=== PATIENT | female | born 1985 | race Caucasian/White ===

== ENCOUNTER → 2016-07-29 | Outpatient (CLI) | payer OTHER ==
[~2016-07-29] MED LIST: ATV2 PO; BIOT1CAP3 PO; CLON2TAB3 PO; GABA1CAP4 PO; MCRB100HP PO; MTR800 PO; MULT-240 PO; PROM25TA16 PO; PROP60CA PO; PRX/40 PO; SINCALIDE INJ 1.7 MCG in SODIUM CHLORIDE 0.9% 100ML 100 ML IV ONE; TPM/50 PO
--- NOTE | 2016-07-29 15:30 | DIAGNOSTIC IMAGING REPORT ---
NUCLEAR MEDICINE HEPATOBILIARY SCAN WITH EJECTION FRACTION ANALYSIS CLINICAL HISTORY: Abdominal pain and vomiting COMPARISON STUDY: Biliary ultrasound dated 06/05/2015 FINDINGS: Patient was injected with 5.2 mCi of technetium 99m Choletec. Sequential anterior imaging was performed. The gallbladder was first visualized on the 15 minute image. There was normal passage of activity into small bowel. At 1 hour, the patient was administered 1.7 mcg of sincalide utilizing a 30 minute intravenous infusion. The gallbladder ejection fraction was normal measuring 54%. IMPRESSION: 1. No evidence of cystic duct obstruction. Normal gallbladder ejection fraction of 54% Electronically signed by: Blake Lake M.D. 07/29/2016 3:28 PM Dictated Date/Time: 07/29/2016 3:26 PM
== END | disposition home or self-care (01) ==
LOC: C.NUCL 12:11
PROVIDERS: ATTEND Internal Medicine Gastroenterology
DX: R10.9 Unspecified abdominal pain (principal); R11.10 Vomiting, unspecified

== ENCOUNTER 2016-12-01 15:44 | Emergency (ER) | payer OTHER ==
[~2016-12-01] VITALS: Ht 175.3 cm; Wt 84.0 kg
[~2016-12-01 15:44] MED LIST changes: -SINCALIDE INJ 1.7 MCG in SODIUM CHLORIDE 0.9% 100ML 100 ML IV ONE; -TPM/50 PO
[2016-12-01 15:50] VITALS: TEMP 36.5; Ht 175.3 cm; Wt 84.0 kg
[2016-12-01] MEDS ORDERED: SODIUM CHLORIDE 0.9% 1000ML 1,000 ML IV STA (16:13)
[2016-12-01] MEDS ORDERED: TPM/50 PO (16:41)
[2016-12-01] MEDS ORDERED: CLON2TAB3 PO (16:43)
[2016-12-01 17:00] LABS: BASO % 0.7 %; BASO ABS # 0.05 K/uL (0-0.2); COMPLETE YES; EOS % 1.7 %; HEMATOCRIT 35.8 % (37-47); LYMPH % 43.3 %; LYMPH ABS # 3.25 K/uL (1.2-3.4); MEAN CELL VOLUME 89.5 fL (80-100); MEAN CORPUSCULAR HEMOGLOBIN 29.3 pg (25-34); MEAN CORPUSCULAR HGB CONC 32.7 g/dl (32-36); MEAN PLATELET VOLUME 10.3 fL (7.4-10.4); MONO % 8.9 %; NEUT % 45.4 %; PLATELET COUNT 175 K/uL (130-400); WHITE BLOOD COUNT 7.51 K/uL (4.8-10.8)
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
[2016-12-01 17:18] LABS: ALT/SGPT 15 U/L (12-78); AST/SGOT 27 U/L (15-37); BLOOD UREA NITROGEN 11 mg/dl (7-18); BUN/CREATININE RATIO 8.6 (10-20); CALCIUM 7.8 mg/dl (8.5-10.1); CARBON DIOXIDE 30 mmol/L (21-32); CHLORIDE 110 mmol/L (98-107); GLUCOSE 75 mg/dl (70-99); MAGNESIUM 2.1 mg/dl (1.8-2.4); POTASSIUM 3.5 mmol/L (3.5-5.1); SODIUM 145 mmol/L (136-145)
[2016-12-01 17:25] VITALS: O2SAT 96
[2016-12-01 17:29] LABS: ALB/GLOB RATIO 1.2 (0.9-2); ALKALINE PHOSPHATASE 88 U/L (45-117)
[2016-12-01 17:45] LABS: URINE APPEARANCE CLEAR (CLEAR); URINE BILIRUBIN NEG (NEG); URINE COLOR YELLOW; URINE NITRITE NEG (NEG); URINE SPECIFIC GRAVITY 1.009 (1.000-1.030); UROBILINOGEN NEG (NEG); ZZUR CULT IF INDIC CLEAN CATCH NO
[2016-12-01 17:54] LABS: MANUAL MICROSCOPIC REQUIRED? NO; REVIEW REQ? NO
[2016-12-01 18:12] LABS: LYME DISEASE AB IGG NEG (NEG); LYME DISEASE AB IGM NEG (NEG)
[2016-12-01 18:26] LABS: BENZODIAZEPINE, URINE POS (NEG); COCAINE,URINE NEG (NEG); PHENCYCLIDINE, URINE NEG (NEG)
[2016-12-01 19:04] VITALS: BP 95/62; PULSE 72; O2SAT 96
[2016-12-04 10:16] LABS: HYDROXYETHYLFLURAZEPAM CONF NEGATIVE NG/ML (CUTOFF=50); HYDROXYMIDAZOLAM NEGATIVE NG/ML (CUTOFF=50); HYDROXYTRIAZOLAM CONF NEGATIVE NG/ML (CUTOFF=50); TEMAZEPAM CONF NEGATIVE NG/ML (CUTOFF=50)
[2017-05-09] MEDS ORDERED: ATV2 PO (20:10)
== END 2016-12-01 19:05 | disposition home or self-care (01) ==
LOC: C.EDB 15:45 → C.EDC 19:05
DX: R55 Syncope and collapse (principal); I44.0 Atrioventricular block, first degree; F15.21 Other stimulant dependence, in remission; G40.909 Epilepsy, unspecified, not intractable, without status epilepticus; Z91.81 History of falling; Z98.890 Other specified postprocedural states; Z79.899 Other long term (current) drug therapy; Z88.8 Allergy status to other drugs, medicaments and biological substances; Z91.09 Other allergy status, other than to drugs and biological substances; Z80.9 Family history of malignant neoplasm, unspecified; Z82.49 Family history of ischemic heart disease and other diseases of the circulatory system

== ENCOUNTER → 2016-12-12 | Outpatient (CLI) | payer OTHER ==
[~2016-12-12] MED LIST changes: -BIOT1CAP3 PO; -MCRB100HP PO; -MTR800 PO; -MULT-240 PO; -PROM25TA16 PO; +TPM/50 PO
[2016-12-12 17:49] LABS: BASO % 0.5 %; BASO ABS # 0.03 K/uL (0-0.2); COMPLETE YES; EOS % 1.6 %; HEMATOCRIT 39.8 % (37-47); IG% 0.2 %; LYMPH % 34.4 %; LYMPH ABS # 1.91 K/uL (1.2-3.4); MEAN CELL VOLUME 89.8 fL (80-100); MEAN CORPUSCULAR HEMOGLOBIN 28.9 pg (25-34); MEAN CORPUSCULAR HGB CONC 32.2 g/dl (32-36); MEAN PLATELET VOLUME 10.5 fL (7.4-10.4); MONO % 7.4 %; NEUT % 55.9 %; PLATELET COUNT 204 K/uL (130-400); RED BLOOD COUNT 4.43 M/uL (4.2-5.4); WHITE BLOOD COUNT 5.55 K/uL (4.8-10.8)
[2016-12-12 18:18] LABS: BLOOD UREA NITROGEN 9 mg/dl (7-18); BUN/CREATININE RATIO 8.4 (10-20); GLUCOSE 80 mg/dl (70-99); SODIUM 144 mmol/L (136-145)
[2016-12-12 18:19] LABS: ALB/GLOB RATIO 1.1 (0.9-2); ALKALINE PHOSPHATASE 92 U/L (45-117); ALT/SGPT 13 U/L (12-78); AST/SGOT 15 U/L (15-37); CALCIUM 8.8 mg/dl (8.5-10.1); CARBON DIOXIDE 27 mmol/L (21-32); CHLORIDE 109 mmol/L (98-107); POTASSIUM 4.1 mmol/L (3.5-5.1)
--- NOTE | 2016-12-18 10:11 | CODING QUERY MEDICAL NECESSITY ---
SUPPORTING DIAGNOSIS NEEDED Dr. Marion, A supporting diagnosis is required for the test/procedure performed on this patient in order for us to be reimbursed by the patient's insurance. Please provide a supporting diagnosis for the following test/procedure listed below next to the test name along with your signature. *If there is no additional diagnosis for this patient that would support the following test/procedure please document that below next to the test/procedure. Test(s)/Procedure(s) that require a supporting diagnosis: * VITAMIN D ASSAY DIAGNOSIS: DATE OF SERVICE: 12/12/16 Provider Signature: Date: Thank you Henry Gaytan [facility] Information Management Once completed, please kindly fax back to [phone] For questions please call [phone]
== END | disposition home or self-care (01) ==
LOC: C.LAB 16:22
PROVIDERS: ATTEND Family Medicine
DX: H57.10 Ocular pain, unspecified eye (principal); W19.XXXA Unspecified fall, initial encounter; R42 Dizziness and giddiness; M62.838 Other muscle spasm; M54.5 Low back pain; E55.9 Vitamin D deficiency, unspecified

== ENCOUNTER → 2017-02-25 | Outpatient (CLI) | payer OTHER ==
[~2017-02-25] MED LIST changes: -ATV2 PO
--- NOTE | 2017-02-25 17:03 | EEG Procedure Note ---
EEG Procedure Note Date of Service Feb 25, 2017. Start / End Times Start Time: 9:24 AM End Time: 10:24 AM Referring Physician Aida Camargo History This is a 31-year-old female with seizure-like activity. Extended EEG for further evaluation. Pertinent home medications include Topamax and Ativan Home Medication List Scheduled Clonazepam (Klonopin), 2 MG PO BID Paroxetine (Paroxetine HCl), 40 MG PO DAILY Propranolol HCl (Propranolol HCl ER), 60 MG PO DAILY Topiramate (Topamax), 50 MG PO BID Scheduled PRN Gabapentin (Gabapentin), 600 MG PO QID PRN for Sciatica Pain Description This is a 21 electrode EEG with a single channel dedicated to limited EKG. The electrodes were placed in accordance with the International 10-20 system. Photic stimulation and hyperventilation was not done because the patient became very anxious. At the start of the recording the patient was in an awake state. Background was well organized and composed of symmetric mixed alpha and beta frequencies. There was a symmetric well-formed moderate amplitude 10-11 Hz posterior dominant rhythm that was reactive to eye opening and closure. Drowsiness was indicated by vertex waves, loss of muscle artifact and slowing of the background rhythm. There was no stage II sleep transients. Interpretation This is a normal one hour extended EEG. There was no electrographic seizures or epileptiform discharges. Clinical Correlation A normal EEG does not rule out epilepsy if there is a strong clinical suspicion.
== END | disposition home or self-care (01) ==
LOC: C.NEUR 09:09
PROVIDERS: ATTEND Psychiatry & Neurology Neurology
DX: R56.9 Unspecified convulsions (principal)

== ENCOUNTER → 2017-02-25 | Outpatient (CLI) | payer OTHER ==
--- NOTE | 2017-02-25 09:11 | DIAGNOSTIC IMAGING REPORT ---
MRI OF THE BRAIN WITHOUT IV CONTRAST CLINICAL HISTORY: Migraine headache. Question of seizure-like activity. Loss of balance. COMPARISON STUDY: CT of the brain dated 06/27/2016. TECHNIQUE: MRI of the brain was performed utilizing various T1 and T2-weighted sequences in the axial, sagittal, and coronal planes. IV contrast was not administered for this examination. Examination is performed using the seizure protocol. FINDINGS: Brain parenchyma: The brain parenchyma is normal in appearance. There is no hemorrhage or mass effect. There is no restricted diffusion to suggest acute ischemia. Lance-white matter differentiation is preserved. No extra-axial fluid collection is seen. The cerebellar tonsils are normal in configuration. The hippocampi are normal and symmetric. Ventricles, sulci, and cisterns: Normal in configuration. Pituitary and sella: Unremarkable. Intracranial vasculature: Normal flow voids are maintained at the skull base. Orbits: The bony orbits are grossly intact. Orbital contents are normal in appearance. Sinuses and mastoids: Mild mucosal thickening is seen within the maxillary antra and ethmoid sinuses. The remaining paranasal sinuses are clear. The mastoid air cells are well pneumatized. Calvarium: Unremarkable. Cervical cord: Partially visualized cervical spinal cord is normal in morphology and signal intensity. IMPRESSION: No acute intracranial abnormality. Electronically signed by: Lucien Corcoran M.D. 02/25/2017 9:10 AM Dictated Date/Time: 02/25/2017 9:06 AM
== END | disposition home or self-care (01) ==
LOC: C.MRIBC 08:16
PROVIDERS: ATTEND Psychiatry & Neurology Neurology
DX: R56.9 Unspecified convulsions (principal); R26.89 Other abnormalities of gait and mobility; G43.109 Migraine with aura, not intractable, without status migrainosus

== ENCOUNTER → 2017-09-08 | Outpatient (CLI) | payer OTHER ==
[~2017-09-08] MED LIST changes: +ATV2 PO; -CLON2TAB3 PO; +GABA-1219 PO; -GABA1CAP4 PO
--- NOTE | 2017-09-08 10:03 | DIAGNOSTIC IMAGING REPORT ---
ABDOMEN LIMITED (US) HISTORY: 32 years-old Female RUQ PAIN acute right upper quadrant abdominal pain COMPARISON: CT abdomen and pelvis 06/20/2016, hepatobiliary scan 07/29/2016 TECHNIQUE: Multiple real-time sonographic images of the abdominal right upper quadrant were obtained assessing grayscale appearance and color flow. FINDINGS: The pancreas is obscured by bowel gas. The liver is within normal limits measuring 15.0 cm in length. No focal hepatic mass lesions or intrahepatic biliary ductal dilation identified. The gallbladder appears normal without cholelithiasis, wall thickening or pericholecystic fluid. Common bile duct is normal, 4 mm. The imaged right kidney is unremarkable without hydronephrosis, however partially obscured by bowel gas. IMPRESSION: 1. Unremarkable exam of the abdominal right upper quadrant. No cholelithiasis or sonographic evidence of acute cholecystitis. 2. No biliary ductal dilation. The above report was generated using voice recognition software. It may contain grammatical, syntax or spelling errors. Electronically signed by: Howie Zhou M.D. 09/08/2017 10:01 AM Dictated Date/Time: 09/08/2017 9:59 AM
== END | disposition home or self-care (01) ==
LOC: C.ULTR 09:25
PROVIDERS: ATTEND Nurse Practitioner Family
DX: R10.11 Right upper quadrant pain (principal)

== ENCOUNTER 2017-12-01 18:19 | Emergency (ER) | payer OTHER ==
[~2017-12-01] VITALS: Ht 170.2 cm; Wt 88.0 kg
[~2017-12-01 18:19] MED LIST changes: -ATV2 PO; -PROP60CA PO
[2017-12-01 18:26] VITALS: TEMP 36.7; Ht 170.2 cm; Wt 88.0 kg
[2017-12-01] MEDS ORDERED: CARISOPRODOL 350 MG TAB PO STA (19:01)
[2017-12-01] MEDS ORDERED: SODIUM CHLORIDE 0.9% 1000ML 1,000 ML IV STA (19:01)
[2017-12-01] MEDS ORDERED: PROM25TA16 PO (19:28)
[2017-12-01] MEDS ORDERED: TPM100 PO (19:28)
[2017-12-01] MEDS ORDERED: RBX500 PO (19:28)
[2017-12-01 19:32] LABS: BASO % 0.5 %; BASO ABS # 0.03 K/uL (0-0.2); EOS % 1.9 %; EOS ABS # 0.12 K/uL (0-0.5); HEMATOCRIT 34.9 % (37-47); HEMOGLOBIN 11.6 g/dL (12.0-16.0); LYMPH % 37.8 %; LYMPH ABS # 2.35 K/uL (1.2-3.4); MEAN CELL VOLUME 90.6 fL (80-100); MEAN CORPUSCULAR HEMOGLOBIN 30.1 pg (25-34); MEAN CORPUSCULAR HGB CONC 33.2 g/dl (32-36); MEAN PLATELET VOLUME 10.4 fL (7.4-10.4); MONO % 4.7 %; MONO ABS # 0.29 K/uL (0.11-0.59); NEUT % 55.1 %; NEUT ABS # 3.42 K/uL (1.4-6.5); PLATELET COUNT 173 K/uL (130-400); RED CELL DISTRIBUTION WIDTH CV 13.3 % (11.5-14.5); RED CELL DISTRIBUTION WIDTH SD 44.1 fL (36.4-46.3); WHITE BLOOD COUNT 6.21 K/uL (4.8-10.8)
[2017-12-01 20:00] LABS: ALBUMIN 3.5 gm/dl (3.4-5.0); CALCIUM 8.6 mg/dl (8.5-10.1); CREATININE 1.02 mg/dl (0.60-1.20); POTASSIUM 3.6 mmol/L (3.5-5.1); TOTAL PROTEIN 6.4 gm/dl (6.4-8.2)
[2017-12-01] MEDS ORDERED: ATV2 PO (20:10)
[2017-12-01] MEDS ORDERED: PROP60CA PO (20:38)
[2017-12-01] MEDS ORDERED: KETOROLAC TROMETHAMINE 30 MG/ML VIAL IV STA (21:55)
[2017-12-01] MEDS ORDERED: CARI350T28 PO (22:04)
--- NOTE | 2017-12-01 22:06 | EMERGENCY ROOM VISIT NOTE ---
History First contact with patient: 18:38 Chief Complaint: NECK PAIN Stated Complaint: NECK SHOULDER PAIN 2 WK VIRUS, REF BY NATHALIE KENNEDY History of Present Illness The patient is a 32 year old female who presents to the Emergency Room via private vehicle with complaints of "neck/shoulder pain, two-week virus, referred by chiropractor". She states that she has been experiencing right sided neck pain extending into her right shoulder region for many weeks. She states then she developed what she believed was a stomach virus 2 weeks ago. She notes that she has profuse diarrhea and at times notes that she becomes nearly incontinent because of the amount of diarrhea. She states that she went to see her chiropractor a few days ago who did a massage and manipulation she felt excellent for 2 days. Then the pain returned and is now severe. She rates the pain as a 4-6/10. She denies any current fever, chest pain, shortness of breath. No abdominal pain other than minimal discomfort in the upper quadrant regions. Review of Systems A complete 10-point Review of Systems was discussed with the patient, with pertinent positives and negatives listed in the History of Present Illness. All remaining Review of Systems questions can be considered negative unless otherwise specified. Past Medical/Surgical History Medical Problems: (1) Back pain (2) Bronchitis (3) Migraine (4) opiate dependence (5) Seizures Surgical Problems: (1) Hx of tonsillectomy (2) [place] teeth removed Family History Cancer Hypertension Lung disease Social History Smoking Status: Never Smoker Alcohol Use: none Drug Use: none Marital Status: in relationship Housing Status: lives with family Occupation Status: employed Current/Historical Medications Scheduled Paroxetine (Paroxetine HCl), 40 MG PO DAILY Promethazine HCl (Promethazine HCl), 25 MG PO QID Propranolol HCl (Propranolol HCl ER), 60 MG PO DAILY Topiramate (Topiramate), 100 MG PO BID Scheduled PRN Carisoprodol (Soma), 350 MG PO TID PRN for Muscle Spasms Gabapentin (Gabapentin), 600 MG PO QID PRN for Sciatica Pain Lorazepam (Lorazepam), 2 TAB PO TID PRN for Anxiety Methocarbamol (Methocarbamol), 500 MG PO QID PRN for Muscle Spasms Physical Exam Vital Signs Date Time Temp Pulse Resp B/P (MAP) Pulse Ox O2 Delivery O2 Flow Rate FiO2 12/01/17 20:45 60 16 109/73 93 Room Air 12/01/17 18:26 36.7 67 20 106/72 99 Room Air Physical Exam VITAL SIGNS - Vital signs and nursing notes were reviewed. Stable. GENERAL -32-year-old female appearing her stated age who is in no acute distress. Communicates well with provider and answers questions appropriately. SKIN - Without rashes. No meningeal or petechial rash. HEAD - NC/AT. EYES - PERRL with EOMI bilaterally. Sclera anicteric. EARS - No deformities of external structures noted on gross examination bilaterally. NOSE - Midline and without cyanosis. No epistaxis or purulent drainage noted. MOUTH/OROPHARYNX - Without perioral cyanosis. NECK - Neck with FROM. Supple to palpation. No lymphadenopathy noted. No nuchal rigidity. Reproducible tenderness of the right-sided paraspinous musculature extending into the right thoracic region. Travels the region of the right trapezius muscle. LUNGS - Chest wall symmetric without accessory muscle use, intercostals retractions, or central cyanosis. Normal vesicular breath sounds CTA B/L. No wheezes, rales, or rhonchi appreciated. CARDIAC - RRR with S1/S2. No murmur, rubs, or gallops appreciated. ABDOMEN - Abdominal contour normal without pulsations or visible masses. BS normoactive all four quadrants. Minimal upper quadrant abdominal tenderness noted. No palpable masses, hepatosplenomegaly, or ascites noted. EXTREMITIES - No clubbing or peripheral cyanosis. No pretibial edema present. +5 /5 strength noted in UE/LE bilaterally. NEUROLOGIC - Cranial nerves II through XII grossly intact. Sensory intact to light touch throughout. PSYCH - A&O, and cooperates fully with examiner. Pt is very pleasant and interacts well with examiner. Medical Decision & Procedures Laboratory Results 12/01/17 19:25 Red Blood Count 3.85, Mean Corpuscular Volume 90.6, Mean Corpuscular Hemoglobin 30.1, Mean Corpuscular Hemoglobin Concent 33.2, Mean Platelet Volume 10.4, Neutrophils (%) (Auto) 55.1, Lymphocytes (%) (Auto) 37.8, Monocytes (%) (Auto) 4.7, Eosinophils (%) (Auto) 1.9, Basophils (%) (Auto) 0.5, Neutrophils # (Auto) 3.42, Lymphocytes # (Auto) 2.35, Monocytes # (Auto) 0.29, Eosinophils # (Auto) 0.12, Basophils # (Auto) 0.03 12/01/17 19:25 Test 12/01/17 19:25 12/01/17 21:25 White Blood Count 6.21 K/uL (4.8-10.8) Red Blood Count 3.85 M/uL (4.2-5.4) Hemoglobin 11.6 g/dL (12.0-16.0) Hematocrit 34.9 % (37-47) Mean Corpuscular Volume 90.6 fL (80-100) Mean Corpuscular Hemoglobin 30.1 pg (25-34) Mean Corpuscular Hemoglobin Concent 33.2 g/dl (32-36) Platelet Count 173 K/uL (130-400) Mean Platelet Volume 10.4 fL (7.4-10.4) Neutrophils (%) (Auto) 55.1 % Lymphocytes (%) (Auto) 37.8 % Monocytes (%) (Auto) 4.7 % Eosinophils (%) (Auto) 1.9 % Basophils (%) (Auto) 0.5 % Neutrophils # (Auto) 3.42 K/uL (1.4-6.5) Lymphocytes # (Auto) 2.35 K/uL (1.2-3.4) Monocytes # (Auto) 0.29 K/uL (0.11-0.59) Eosinophils # (Auto) 0.12 K/uL (0-0.5) Basophils # (Auto) 0.03 K/uL (0-0.2) RDW Standard Deviation 44.1 fL (36.4-46.3) RDW Coefficient of Variation 13.3 % (11.5-14.5) Immature Granulocyte % (Auto) 0.0 % Immature Granulocyte # (Auto) 0.00 K/uL (0.00-0.02) Anion Gap 6.0 mmol/L (3-11) Est Creatinine Clear Calc Drug Dose 88.5 ml/min Estimated GFR () 83.1 Estimated GFR (Non- 71.7 BUN/Creatinine Ratio 9.6 (10-20) Calcium Level 8.6 mg/dl (8.5-10.1) Magnesium Level 1.9 mg/dl (1.8-2.4) Total Bilirubin 0.2 mg/dl (0.2-1) Aspartate Amino Transf (AST/SGOT) 31 U/L (15-37) Alanine Aminotransferase (ALT/SGPT) 15 U/L (12-78) Alkaline Phosphatase 63 U/L (45-117) Total Protein 6.4 gm/dl (6.4-8.2) Albumin 3.5 gm/dl (3.4-5.0) Globulin 2.9 gm/dl (2.5-4.0) Albumin/Globulin Ratio 1.2 (0.9-2) Thyroid Stimulating Hormone (TSH) 1.050 uIu/ml (0.300-4.500) Urine Color YELLOW Urine Appearance CLEAR (CLEAR) Urine pH 7.5 (4.5-7.5) Urine Specific [place] 1.011 (1.000-1.030) Urine Protein NEG (NEG) Urine Glucose (UA) NEG (NEG) Urine Ketones NEG (NEG) Urine Occult Blood NEG (NEG) Urine Nitrite NEG (NEG) Urine Bilirubin NEG (NEG) Urine Urobilinogen NEG (NEG) Urine Leukocyte Esterase NEG (NEG) Urine Test NEG (NEG) Medications Administered Medications (Trade) Dose Ordered Sig/Marck Route Start Time Stop Time Status Last Admin Dose Admin Sodium Chloride 1,000 ml @ 999 mls/hr Q1H1M STAT IV 12/01/17 19:01 12/01/17 20:01 DC 12/01/17 19:33 999 MLS/HR Carisoprodol (Soma Tab) 350 mg NOW STAT PO 12/01/17 19:01 12/01/17 19:03 DC 12/01/17 19:16 350 MG Medical Decision Patient was seen and evaluated as above in room D5. Review was performed of nursing notes and vital signs. After obtaining a thorough history and physical examination the above work up was performed. She presents to us today with right-sided reproducible paraspinous musculature tenderness of the thoracic and cervical spine in the outline of the trapezius muscle. It is reproducible on exam with palpation and movement of the right upper extremity. When I asked her what brings her in the emergency department she began to talk about her diarrhea, and how there is also accompanying abdominal pain, neck pain, head pain, and was asked to come here by her chiropractor. On exam she has nothing to suggest an acute process. She has no signs of meningitis or encephalitis. Full range of motion of the C-spine noted. She is afebrile. Vital signs are stable. I did elect to obtain baseline labs and there is no concerning leukocytosis, no new concerning anemia, or evidence of metabolic abnormality. Urine is negative. Urine pretty test is negative. She was given 1 Soma muscle relaxer without relief. I did reassess her and she was sleeping, therefore I do not believe that any other medications were warranted. When I woke her up we also talked about her other medications could cause her to be tired if she notes that she has been very tired over the past 2 weeks. I asked her about her Ativan prescription which was just filled on the , she notes that she is not taking it anymore. I informed her that I do not want to prescribe a muscle relaxer on top of the Ativan if she is still taking it. She reassured me she is not taking that or the Robaxin. I felt to be reasonable to do a short course of Soma noting she said she had success with this in the past for muscle spasm. I did discuss with her whether or not to perform a lumbar puncture given that the person who referred her here was concerned regarding her virus and neck pain but using joint decision making with the patient decision was made to refrain at this time. The risk was felt to outweigh the benefit. She was fully coherent and able to answer all questions and I did have a lengthy discussion with her at the end of the visit regarding management of the muscle strain. She is to call her family doctor to schedule follow-up or return with worsening. The patient was educated upon management, had questions answered prior to discharge, and was discharged home in good condition. It is important to note that although she was referred here by the chiropractor , that her neck pain did not occur after the manipulation therefore I do not suspect dissection or other intimal injury. I suspect this to be purely musculoskeletal. I attest that I have personally reviewed the patient medication list. I attest that I have reviewed the patient's blood pressure and it was found to be stable. In the evaluation and treatment of this patient, the following differential diagnoses were considered: Musculoskeletal Strain, Discitis, Cervical Spine Fracture, Cervical Spine Dislocation, Cervical Spine Subluxation, Cervical Spondylosis, Fibromyalgia, Osteoarthritis, Polymyalgia Rheumatica, Psychogenic Pain Disorder, Tumor of Soft Tissue or Spine. Impression Primary Impression: Neck pain Additional Impression: Anemia Departure Information Dispostion Home / Self-Care Condition GOOD Prescriptions Carisoprodol (Soma) 350 Mg Tab 350 MG PO TID Y for Muscle Spasms for 3 Days, #9 TAB Prov: Isai Craig PA-C 12/01/17 Referrals Jonathan Marion M.D. (PCP) Patient Instructions [facility] Additional Instructions You have been treated in the Emergency Department for upper right back Pain. I suspect you are likely experiencing a muscle spasm. You have been prescribed Soma muscle relaxer 1 tablet every 8 hours as needed for severe muscle spasm. Please be careful taking his medication as it can further cause tiredness/drowsiness. As we discussed please be careful to not take this with the other medications. For pain control, you can use the following mswg-poe-traunty medicines (if >12 yo): - Regular strength (325mg/tab) Tylenol (acetaminophen) 2 tabs every 4-6 hours as needed. Do not exceed 12 tablets in a 24 hour period. Avoid taking more than 3 grams (3000 mg) of Tylenol per day. This includes any other sources of acetaminophen you may take on a regular basis. - Regular strength (200 mg/tab) Advil (ibuprofen) 1-2 tabs every 4-6 hours as needed. Do not exceed a dose of 3200 mg per day. If this is an acute injury, ice can be applied to the area of pain for the first 3 days to help decrease pain and inflammation. After the first 3 days, a heating pad can be used over the area for continued soothing relief. You should schedule a follow-up appointment with your family doctor regarding your right shoulder pain and diarrhea. Return to the Emergency Department if your current symptoms worsen despite treatment course outlined above, or if you develop any of the following symptoms : intractable pain despite aforementioned treatment course, loss of control of your bowel or bladder, numbness or tingling in your groin, or development of a fever. Problem Qualifiers
[2017-12-01 22:21] VITALS: BP 119/78; PULSE 62; O2SAT 98
== END 2017-12-01 22:22 | disposition home or self-care (01) ==
LOC: C.EDB 18:21 → C.EDD 22:22
DX: M54.2 Cervicalgia (principal); D64.9 Anemia, unspecified; R19.7 Diarrhea, unspecified; Z86.69 Personal history of other diseases of the nervous system and sense organs; Z98.818 Other dental procedure status; Z90.89 Acquired absence of other organs; Z82.49 Family history of ischemic heart disease and other diseases of the circulatory system; Z79.899 Other long term (current) drug therapy